=== PATIENT | male | born 1955 | race Caucasian/White ===

== ENCOUNTER 2019-10-09 08:39 | Observation (INO) | payer BC, OTHER ==
[~2019-10-09] VITALS: Ht 185.4 cm; Wt 113.8 kg
[~2019-10-09 08:39] MED LIST: ASCO250T13 PO; ATOR10TA9 PO; BUPIVACAINE/PF-EPI 0.5% 1:200K ONE; CLOT15CR6 TP; ELDE1CAP PO; FLUO118.8 EACH EAR; FLUT1AER INH; IBUP-1223 PO; MUPI15CR9 TP; OMEP40CA42 PO; OXYC5CAP2 PO; TEA30SPR TP; zinc PO
[2019-10-09] MEDS ORDERED: LACTATED RINGERS 1,000 ML IV SCH (08:50)
[2019-10-09] MEDS ORDERED: ACETAMINOPHEN 500 MG TABLET PO ONE (09:00)
[2019-10-09] MEDS ORDERED: CHLORHEXIDINE 15 ML UDC MM ONE (09:00)
[2019-10-09] MEDS ORDERED: LIDOCAINE-MPF 1%, 2ML INFIL ONE (09:00)
[2019-10-09] MEDS ORDERED: GABAPENTIN 300 MG CAPSULE PO ONE (09:00)
[2019-10-09 09:23] VITALS: BP 145/90
[2019-10-09] MEDS ORDERED: FENTANYL PF 250 MCG/5ML ONE (09:38)
[2019-10-09] MEDS ORDERED: MIDAZOLAM 1 MG/ML, 2ML ONE (09:38)
[2019-10-09] MEDS ORDERED: CEFAZOLIN 1,000 MG ONE (09:39)
[2019-10-09] MEDS ORDERED: PROPOFOL 10 MG/ML, 20ML ONE (09:39)
[2019-10-09] MEDS ORDERED: NEOSTIGMINE 1 MG/ML, 10ML ONE (09:39)
[2019-10-09] MEDS ORDERED: ROCURONIUM 10MG/ML,5ML ONE (09:39)
[2019-10-09] MEDS ORDERED: GLYCOPYRROLATE 0.2MG/1ML, 5ML ONE (09:39)
[2019-10-09] MEDS ORDERED: HYDROmorphone 2 MG/ML, 1ML IVPush PRN (11:00)
[2019-10-09] MEDS ORDERED: MEPERIDINE/PF 25MG/ML,1ML IVPush PRN (11:00)
[2019-10-09] MEDS ORDERED: ONDANSETRON 2MG/ML, 2ML IV PRN (11:00)
[2019-10-09] MEDS ORDERED: hydrALAzine 20 MG/ML, 1ML IV PRN ×2 (11:00→14:00)
[2019-10-09] MEDS ORDERED: ALBUTEROL SULFATE 2.5 MG/3 ML NPPB PRN (11:00)
[2019-10-09] MEDS ORDERED: LABETALOL 5MG/ML, 20ML IV PRN (11:00)
[2019-10-09] MEDS ORDERED: FENTANYL PF 100 MCG/2ML IV PRN (11:00)
[2019-10-09] MEDS ORDERED: OXYcodone 5 MG/5 ML ORAL.SOL UDC PO PRN (11:00)
[2019-10-09] MEDS ORDERED: MORPHINE SULFATE 4 MG/ML, 1ML IVPush PRN (11:00)
[2019-10-09] MEDS ORDERED: KETOROLAC 30 MG/1 ML ONE (11:09)
[2019-10-09] MEDS ORDERED: SUGAMMADEX 200 MG/2 ML IVPush ONE (11:24)
[2019-10-09] MEDS ORDERED: morphine SULFATE 10 MG/ML, 1ML IVPush PRN (12:00)
[2019-10-09] MEDS ORDERED: ONDANSETRON 2MG/ML, 2ML IVPush PRN ×2 (12:00→14:00)
[2019-10-09] MEDS ORDERED: ENALAPRILAT 1.25 MG/ML, 2ML IV PRN (14:00)
[2019-10-09] MEDS ORDERED: DIPHENHYDRAMINE 50 MG/ML, 1ML IV PRN (14:00)
[2019-10-09] MEDS: LACTATED RINGERS 1,000 ML IV SCH ×2 (15:42→20:48)
[2019-10-09] MEDS: FAMOTIDINE 20 MG TABLET PO SCH (15:42)
[2019-10-09 20:56] VITALS: BP 129/83
[2019-10-09] MEDS: ACETAMINOPHEN 650 MG/20.3 ML UDC PO PRN (21:19)
[2019-10-10 00:31] VITALS: BP 117/71
[2019-10-10] MEDS: FAMOTIDINE 20 MG TABLET PO SCH ×2 (02:13→14:09)
[2019-10-10] MEDS: ACETAMINOPHEN 650 MG/20.3 ML UDC PO PRN (02:18)
[2019-10-10 04:07] VITALS: BP 112/74
[2019-10-10] MEDS: LACTATED RINGERS 1,000 ML IV SCH ×2 (04:08→12:00)
[2019-10-10] MEDS: HYDROcodone/APAP 5/325 TABLET PO PRN ×3 (04:19→14:10)
[2019-10-10 07:15] VITALS: BP_SYST 116; BP_SYST 121; BP_DIAS 67; BP_DIAS 74
[2019-10-10] MEDS ORDERED: HYDR-3237 PO (11:17)
[2019-10-10 12:00] VITALS: BP 148/80
== END 2019-10-10 14:25 | disposition home or self-care (01) ==
LOC: OUT 08:39 → ORIP 13:59 → 4NE 15:15
PROVIDERS: ADMIT Thoracic Surgery (Cardiothoracic Vascular Surgery); ATTEND Thoracic Surgery (Cardiothoracic Vascular Surgery)
DX: K40.90 Unilateral inguinal hernia, without obstruction or gangrene, not specified as recurrent (principal); E78.5 Hyperlipidemia, unspecified; K21.9 Gastro-esophageal reflux disease without esophagitis; G47.33 Obstructive sleep apnea (adult) (pediatric); D17.6 Benign lipomatous neoplasm of spermatic cord; E78.00 Pure hypercholesterolemia, unspecified; M81.0 Age-related osteoporosis without current pathological fracture; Z87.891 Personal history of nicotine dependence; Z79.899 Other long term (current) drug therapy
CPT/HCPCS: 49650; 93005; C1781; G0378; J0690; J1885; J2250; J2704; J2710; J3010; J7120; U0001

== ENCOUNTER → 2020-03-25 | Outpatient (CLI) | payer OTHER ==
[~2020-03-25] MED LIST changes: -BUPIVACAINE/PF-EPI 0.5% 1:200K ONE; +HYDR-3237 PO; +REGADENOSON 0.4 MG/5 ML SYRINGE ONE
== END | disposition home or self-care (01) ==
LOC: CVU 09:29
PROVIDERS: ATTEND Internal Medicine Cardiovascular Disease
DX: I34.0 Nonrheumatic mitral (valve) insufficiency (principal); I65.23 Occlusion and stenosis of bilateral carotid arteries; R07.9 Chest pain, unspecified; R06.02 Shortness of breath; I10 Essential (primary) hypertension
CPT/HCPCS: 78452; 93017; 93306; 93356; 93880; A9502; J2785